=== PATIENT | female | born 1970 | race Caucasian/White ===

== ENCOUNTER → 2016-04-06 | Outpatient (CLI) | payer OTHER ==
--- NOTE | 2016-04-06 19:45 | CT ---
EXAMINATION TYPE: CT brain wo con DATE OF EXAM: 04/06/2016 7:35 PM COMPARISON: NONE HISTORY: Pt states of blurry vision and GOMEZ. CT DLP: 919.8 mGycm Automated exposure control for dose reduction was used. FINDINGS: Ventricles and sulci appear normal. There is no mass effect nor midline shift. There is no sign of in tracranial hemorrhage. The calvarium is intact. IMPRESSION: Normal unenhanced head CT scan.
== END | disposition home or self-care (01) ==
LOC: RADCTMAIN 19:02
PROVIDERS: ATTEND Family Medicine
DX: G43.909 Migraine, unspecified, not intractable, without status migrainosus (principal)
CPT/HCPCS: 70450

== ENCOUNTER → 2017-04-23 | Outpatient (CLI) | payer OTHER ==
[2017-04-23 10:26] LABS: Basophils # (A) 0.1 k/uL (0-0.2); Basophils % (A) 1 %; Eosinophils # (A) 0.2 k/uL (0-0.7); Eosinophils % (A) 3 %; HCT 39.3 % (34.0-46.0); HGB 12.3 gm/dL (11.4-16.0); Lymphocytes # (A) 1.4 k/uL (1.0-4.8); Lymphocytes % (A) 17 %; MCH 27.9 pg (25.0-35.0); MCHC 31.2 g/dL (31.0-37.0); MCV 89.6 fL (80.0-100.0); Mean Platelet Volume 7.3; Monocytes # (A) 0.4 k/uL (0-1.0); Monocytes % (A) 5 %; Neutrophils # (A) 5.8 k/uL (1.3-7.7); Neutrophils % (A) 73 %; Platelet Count 285 k/uL (150-450); RBC 4.39 m/uL (3.80-5.40)
== END | disposition home or self-care (01) ==
LOC: LABPAT 09:38
PROVIDERS: ATTEND Obstetrics & Gynecology
DX: Z01.812 Encounter for preprocedural laboratory examination (principal)
CPT/HCPCS: 36415; 85025

== ENCOUNTER 2017-05-20 06:15 | Day surgery (SDC) | payer OTHER ==
[2017-05-19 08:32] VITALS: BMI 30.4
[~2017-05-20 06:15] MED LIST: DEXAMETHASONE SOD PHOSPHATE 10 MG/ML 1 ML VIAL IV ONE; LACTATED RINGERS 1,000 ML IV SCH; LIDOCAINE 1% 20 ML VIAL (10MG/ML) FOR IV START INTRADERMA PRN; ONDANSETRON 4 MG/2 ML VIAL IVP ONE; Pre Op ABX Message 1 EACH MISC MISCELLANE ONE; fentaNYL (PF) 50 MCG/ML 2 ML AMP IV PRN
[2017-05-20 06:42] VITALS: RESP 16
[2017-05-20] MEDS ORDERED: MIDAZOLAM 2 MG/2 ML VIAL ONE (07:34)
[2017-05-20] MEDS ORDERED: KETOROLAC 30 MG/ML 1 ML VIAL ONE (07:34)
[2017-05-20] MEDS ORDERED: fentaNYL (PF) 50 MCG/ML 2 ML AMP ONE (07:34)
[2017-05-20] MEDS ORDERED: LIDOCAINE 1% INJ 10MG/ML (20 ML MDV) ONE (07:34)
[2017-05-20] MEDS ORDERED: PROPOFOL 10 MG/ML 20 ML VIAL IV ONE (07:34)
--- NOTE | 2017-05-20 07:34 | P.HPOB ---
History of Present Illness H&P Date: 05/19/17 Chief Complaint: Menorrhagia with regular cycle This is a 47 y.o. female, 3, para 3, who presents for dilatation and curettage with hysteroscopy and Novasure endometrial ablation for menorrhagia with regular cycle. She has menses occuring every 28 days and lasting 4-5 days with large clots and heavy to the point of going through a pad and tampon almost every hour for the 1st couple days. She also occasionally has breakthrough spotting mid-cycle. Her pelvic US showed uterus measuring 11 x 5.2 x 5.2 cm with endometrial thickness of 1.6 cm. She did have a small follicle cyst on her R. ovary. She wishes to proceed with definitive surgical treatment. She has had tubal ligation. OB Hx: . 3 vaginal deliveries. Distribution Analyst Hx: No hx of STDs. Social Hx: . Works as [employer] CLERK. Review of Systems Constitutional: Denies chills, Denies fever Eyes: denies blurred vision, denies pain Ears, nose, mouth and throat: Denies headache, Denies sore throat Cardiovascular: Denies chest pain, Denies shortness of breath Respiratory: Denies cough Gastrointestinal: Denies abdominal pain, Denies diarrhea, Denies nausea, Denies vomiting Genitourinary: Reports menorrhagia, Reports pelvic pain, Reports stress incontinence Menstruation: Reports period heavy Musculoskeletal: Denies myalgias Integumentary: Denies pruritus, Denies rash Neurological: Denies numbness, Denies weakness Psychiatric: Denies anxiety, Denies depression Endocrine: Denies fatigue, Denies weight change Past Medical History Past Medical History: Hypertension History of Any Multi-Drug Resistant Organisms: None Reported Past Surgical History: Tubal Ligation Additional Past Surgical History / Comment(s): Left breast biopsy Past Anesthesia/Blood Transfusion Reactions: No Reported Reaction Past Psychological History: No Psychological Hx Reported Smoking Status: Never smoker Past Alcohol Use History: Occasional Past Drug Use History: None Reported - Past Family History Sister(s) Additional Family Medical History / Comment(s): non hodgkins lymphoma Medications and Allergies Home Medications Medication Instructions Recorded Confirmed Type Biotin 5 mg PO DAILY 05/19/17 05/20/17 History Cholecalciferol [Vitamin D3] 1,000 unit PO DAILY 05/19/17 05/20/17 History Cyanocobalamin (Vitamin B-12) 1,000 mcg PO DAILY 05/19/17 05/20/17 History [Vitamin B-12] Magnesium Oxide [Mag-Ox] 250 mg PO DAILY 05/19/17 05/20/17 History [place]-3 Fatty Acids/Fish Oil [Fish 1 each PO DAILY 05/19/17 05/20/17 History Oil 1,000 mg Softgel] Allergies Allergy/AdvReac Type Severity Reaction Status Date / Time Latex, Natural Rubber Allergy Rash/Hives Verified 05/20/17 06:36 Exam Osteopathic Statement: *. No significant issues noted on an osteopathic structural exam other than those noted in the History and Physical/Consult. - Vital Signs Vital signs: Intake and Output 05/18/17 05/19/17 05/19/17 22:59 06:59 14:59 Other: Weight 90.718 kg HEENT: within normal limits Heart: regular rate and rhythm Lungs: clear to auscultation bilaterally Abdomen: soft, non-tender Pelvic exam: Uterus mid-position, mildly tender, with no adnexal masses, but mild bilateral adnexal tenderness Extremities: Neg. Vickie's Assessment and Plan (1) Menorrhagia with regular cycle Current Visit: Yes Status: Acute Code(s): N92.0 - EXCESSIVE AND FREQUENT MENSTRUATION WITH REGULAR CYCLE SNOMED Code(s): 373539742 Plan: Proceed with dilatation and curettage with hysteroscopy and Novasure endometrial ablation. I have discussed the risks, benefits, and alternative therapies for the above- mentioned procedure and for both sedation/anesthesia as well as necessary blood products administration, if indicated, as they pertain to this patient. The patient has indicated her understanding and acceptance of the risks and procedures discussed.
--- NOTE | 2017-05-20 08:11 | P.OP ---
Date of Procedure: 05/20/17 Preoperative Diagnosis: Menorrhagia with regular cycle Postoperative Diagnosis: Same Procedure(s) Performed: Dilation and curettage with hysteroscopy and NovaSure endometrial ablation Anesthesia: other (Mask general) Surgeon: Anastasiia Aranda Estimated Blood Loss (ml): 10 Pathology: other (Endometrial curettings) Condition: stable Disposition: same day Indications for Procedure: This is a 47 y.o. female, 3, para 3, who presents for dilatation and curettage with hysteroscopy and Novasure endometrial ablation for menorrhagia with regular cycle. She has menses occuring every 28 days and lasting 4-5 days with large clots and heavy to the point of going through a pad and tampon almost every hour for the 1st couple days. She also occasionally has breakthrough spotting mid-cycle. Her pelvic US showed uterus measuring 11 x 5.2 x 5.2 cm with endometrial thickness of 1.6 cm. She did have a small follicle cyst on her R. ovary. She wishes to proceed with definitive surgical treatment. She has had tubal ligation. Operative Findings: Uterus is mid position with no adnexal masses palpated. Cervix is sounded to 3 cm. Uterus is sounded to 10-1/2 cm. Upon hysteroscopy there was noted to be some polypoid type tissue anteriorly in the lower part of the uterus. Both tubal ostia were visualized. A moderate amount of endometrial curettings are obtained. Description of Procedure: The patient is taken to the operating room. She is placed in the dorsal lithotomy position after general anesthesia was given. She is prepped and draped in the normal sterile fashion. Bladder is drained with a catheter and then removed. Pelvic exam is performed under anesthesia. Uterus is found to be mid position with no adnexal masses. She is placed in slight Trendelenburg position. A right angle retractor is used to visualize the cervix. The anterior lip of the cervix is grasped with a single-tooth tenaculum. Cervix is sounded to 3 cm. Uterus is sounded to 10.5 cm. Cervix is gently dilated with Theodore dilators until a hysteroscope could be passed. Hysteroscopy is performed using normal saline. The above noted findings are noted. Next a polyp forceps is introduced. A moderate amount of tissue was obtained. Next medium-sized size sharp curette was placed. A moderate amount of endometrial curettings were obtained. Next NovaSure array was inserted into the endometrial cavity. Length was set at 6.5 cm and width was determined to be 4.6 cm. Next cavity assessment was completed and passed on the first try. Next NovaSure array was fired at 164 W for 76 seconds. Next the array was removed, inspected and then discarded. Next the hysteroscope was reinserted. Uniform charring was noted. Pictures were taken. Hysteroscope was removed. Single-tooth tenaculum was removed from the anterior lip of the cervix. Minimal bleeding was noted. All other instruments removed from the vagina. Sponge counts were correct. Patient is taken to recovery room in stable condition.
[2017-05-20 08:22] VITALS: TEMP 97.4
[2017-05-20] MEDS ORDERED: HYDROcodone/APAP 5-325MG 1 EACH TAB PO ONE (09:18)
[2017-05-20 09:35] VITALS: BP 129/85; PULSE 77
== END 2017-05-20 10:05 | disposition home or self-care (01) ==
LOC: OR 06:15
PROVIDERS: ATTEND Obstetrics & Gynecology
DX: N84.0 Polyp of corpus uteri (principal); N83.01 Follicular cyst of right ovary; I10 Essential (primary) hypertension; Z98.51 Tubal ligation status; Z91.040 Latex allergy status
CPT/HCPCS: 81025; 88305; 58563; J2250; J1100; J2405; J2001; J3010; J1885; J2704

== ENCOUNTER → 2021-11-21 | Outpatient (CLI) | payer BC ==
--- NOTE | 2021-11-24 08:20 | MM ---
Reason for Exam: Screening (asymptomatic). Last mammogram was performed 6 year(s) and 1 month(s) ago. Patient History: Menarche at age 14. First Full-Term at age 29. Postmenopausal. Hormonal Contraceptives for 8 years from age 20 until age 38. 03/21/2008, Benign Core Biopsy on the left side. 03/21/2008, Benign Core Biopsy on the left side. Paternal aunt had breast cancer at or over age 50. Paternal grandmother had breast cancer at or over age 50. Paternal grandmother had ovarian cancer at or over age 50. Risk Values: Mikayla 5 year model risk: 1.6%. NCI Lifetime model risk: 14.5%. Prior Study Comparison: 11/07/2008 Bilateral Diagnostic Mammogram, [facility]. 07/11/2010 Bilateral Diagnostic Mammogram, [facility]. 11/27/2011 Bilateral Diagnostic Mammogram, [facility]. 10/02/2015 Bilateral Screening Mammogram, [facility]. Tissue Density: The breast tissue is extremely dense which could obscure a lesion on mammography. Findings: Analyzed By CAD. There are 2 mammotome biopsy clips in the left breast redemonstrated. Benign-appearing bilateral axillary lymph nodes are seen. There is no suspicious group of microcalcifications or new suspicious mass in either breast. Overall Assessment: Benign, BI-RAD 2 Management: Screening Mammogram of both breasts in 1 year. Some Advise bilateral breast ultrasound surveillance in patients with background dense tissue. A clinical breast exam by your physician is recommended on an annual basis and results should be correlated with mammographic findings. Electronically signed and approved by: Guillermo Flynn M.D.
== END | disposition home or self-care (01) ==
LOC: RADMAMWWP 07:06
PROVIDERS: ATTEND Family Medicine
DX: Z12.31 Encounter for screening mammogram for malignant neoplasm of breast (principal); Z80.3 Family history of malignant neoplasm of breast; Z78.0 Asymptomatic menopausal state
CPT/HCPCS: 77063; 77067

== ENCOUNTER → 2021-12-09 | Outpatient (CLI) | payer BC ==
--- NOTE | 2021-12-09 11:11 | CT ---
EXAMINATION TYPE: CT soft tissue neck wo/w con DATE OF EXAM: 12/09/2021 COMPARISON: None HISTORY: 51-year-old female R59.0, Lump on right side of neck TECHNIQUE: Contiguous axial scanning of the soft tissues of the neck performed without and with IV Co ntrast, patient injected with 100ml mL of Isovue 370. Coronal/sagittal reconstructions performed. CT DLP: 1040 mGycm Automated exposure control for dose reduction was used. FINDINGS: Visualized intracranial structures, orbits and globes, paranasal sinuses, and mastoid air cells appea r clear. There is rightward nasal septal deviation noted. The nasopharynx is clear. There is bilateral lingual tonsillar hypertrophy, slightly asymmetric on the right. Tonsillar hypertr ophy is also asymmetrically greater on the right side causing asymmetric effacement of the right vall ecular space. A few scattered punctate tonsilloliths are noted on the left measuring up to 3 mm. Punctate densities on the right measure up to 2 mm. Dental amalgam artifact limits assessment of the oral cavity. The epiglottis and prevertebral soft tissues are satisfactory. Glottic and subglottic structures as well as the tracheal column and visualized upper lungs appear cl ear. The thyroid, submandibular, and parotid glands appear satisfactory. Small parotid space lymph nodes on both sides measuring up to 5 mm, within normal limits. Borderline sized station 2A cervical lymph nodes on both sides measuring up to 1.3 cm short axis, cor onal image 49 are noted. No cervical lymphadenopathy by size criteria. There is a palpable marker along the right anterior mid neck. Underlying the palpable marker, there i s an asymmetrically larger right anterior jugular vein. No suspicious underlying mass is apparent. Bones: No osseous destructive process. IMPRESSION: 1. PALPABLE MARKER PLACED ALONG THE ANTERIOR RIGHT MID NECK. UNDERLYING THE MARKER, THERE IS AN ASYMM ETRICALLY LARGER RIGHT ANTERIOR JUGULAR VEIN. NO SUSPICIOUS UNDERLYING MASS HERE. 2. AT LEAST MODERATE BILATERAL PALATINE AND LINGUAL TONSILLAR HYPERTROPHY, RIGHT GREATER THAN LEFT. A FEW SCATTERED PUNCTATE TONSILLOLITHS ON BOTH SIDES MEASURE UP TO 3 MM. CONSIDER DIRECT VISUALIZATION THE TONSILLAR HYPERTROPHY ASYMMETRICALLY EFFACES THE RIGHT VALLECULAR SPACE.
== END | disposition home or self-care (01) ==
LOC: RADCTMAIN 09:16
PROVIDERS: ATTEND Family Medicine
DX: R22.1 Localized swelling, mass and lump, neck (principal)
CPT/HCPCS: 70492; Q9967

== ENCOUNTER → 2022-02-02 | Outpatient (CLI) | payer BC ==
--- NOTE | 2022-02-03 05:53 | MR ---
EXAMINATION TYPE: MR knee RT wo con DATE OF EXAM: 02/02/2022 COMPARISON: None HISTORY: Right inner knee pain and swelling for 2 months. Multiplanar multiecho imaging of the right knee performed without contrast. There is a moderate knee joint effusion. The anterior and posterior cruciate ligaments are intact. Th e medial and lateral menisci appear intact. The collateral ligaments are intact. There is mild thinni ng of the medial meniscus. There is no evidence of a fracture. No focal bone destruction. There is hy pertrophic mild spurring of the femoral and tibial condyles. The patella is intact. There is mild sub cutaneous edema anterior to the patella and the proximal tibia. IMPRESSION: Mild knee joint effusion consistent with some nonspecific synovitis. No evidence of ligamentous tear. Mild hypertrophic osteoarthritis. No evidence of any significant meniscal tear. Mild anterior subcut aneous edema.
== END | disposition home or self-care (01) ==
LOC: RADMRIMAIN 19:52
PROVIDERS: ATTEND Orthopaedic Surgery
DX: M17.11 Unilateral primary osteoarthritis, right knee (principal); M25.461 Effusion, right knee; R60.0 Localized edema

== ENCOUNTER → 2024-05-26 | Outpatient (CLI) | payer BC ==
--- NOTE | 2024-05-26 07:59 | CT ---
EXAMINATION TYPE: CT soft tissue neck w con CT DLP: 626 mGycm, Automated exposure control for dose reduction was used. DATE OF EXAM: 05/26/2024 7:47 AM COMPARISON: CT soft tissue neck 12/09/2021. CLINICAL INDICATION:Female, 54 years old with history of R22.1 neck mass; PHH, Neck mass TECHNIQUE: Standard enhanced CT of the neck following intravenous administration of 100 cc of Isovue 300. Axial sections with coronal and sagittal reformats were obtained. FINDINGS: Dental amalgam creates streak artifact which limits evaluation. Brain: Visualized portions are grossly unremarkable. Orbits: Unremarkable Sinuses: Minimal mucosal thickening of the right maxillary sinus. The remaining paranasal visualized sinuses are clear. Suprahyoid Neck: The oropharynx, oral cavity, parapharyngeal and retropharyngeal spaces are clear and symmetric. Punctate right palatine tonsilliths. The nasopharynx is unremarkable. Infrahyoid Neck: The larynx, hypopharynx, and supraglottic area are clear and symmetric. Parotid Glands: Unremarkable. Submandibular Glands: Unremarkable. Musculoskeletal: No acute osseous pathology. Lymph nodes: Stable bilateral subcentimeter parotid space lymph nodes. Stable mildly enlarged bilat eral lymph nodes with the right measuring up to 1.4 cm (series 3, image 35) and the left measuring up to 1.8 cm (series 3, image 36). No new adenopathy. Vascular structures: Visualized major arteries are patent without evidence of aneurysm. Thoracic Inlet/airway: Airway is patent. The lung apices are clear. Soft tissues/Thyroid: Thyroid and remainder of the soft tissues are unremarkable. Other: none. IMPRESSION: Mildly enlarged stable bilateral level 2A lymph nodes dating back to 2021 and favored to be benign du e to stability. [facility], , 05/26/2024 7:56 AM
== END | disposition home or self-care (01) ==
LOC: RADCTMAIN 07:16
PROVIDERS: ATTEND Family Medicine
DX: R59.9 Enlarged lymph nodes, unspecified (principal)
CPT/HCPCS: 70491; Q9967